=== PATIENT | female | born 1940 | race Caucasian/White ===

== ENCOUNTER 2020-09-12 13:04 | Outpatient (CLI) | payer MEDICARE, OTHER, SELFPAY ==
--- NOTE | 2020-09-12 13:17 | MM_ITS ---
WS: [id number] BILATERAL DIGITAL SCREENING MAMMOGRAPHY WITH CAD CLINICAL INFORMATION: SCREENING HISTORY: Screening mammogram. No current complaints. COMPARISON: TECHNIQUE: Bilateral CC and MLO views. FINDINGS: The breasts are composed of heterogeneous fibroglandular density tissue, which can limit the detectio n of small underlying mass lesions. 8 mm asymmetric density along the posterior nipple line with sugg estion of adjacent ductal dilatation. Recommend spot compression views and ultrasound for further lyssa luation. Left breast appears unchanged. MM/[place] [id number] IMPRESSION: BI-RADS: 0-Incomplete: Need additional imaging evaluation FOLLOW UP: Need Additional Imaging RECOMMEND DIAGNOSTIC SPOT COMPRESSION VIEWS AND ULTRASOUND RIGHT BREAST
== END 2020-09-12 13:05 | disposition home or self-care (01) ==
LOC: RADSHAW 13:10
PROVIDERS: PCP Family Medicine; Visit Provider Family Medicine
DX: Z12.31 Encounter for screening mammogram for malignant neoplasm of breast (principal); N64.89 Other specified disorders of breast
CPT/HCPCS: 77067

== ENCOUNTER 2020-10-03 08:11 | Outpatient (CLI) | payer MEDICARE, OTHER, SELFPAY ==
--- NOTE | 2020-10-03 08:29 | US_ITS ---
WS: [id number] RIGHT DIGITAL MAMMOGRAPHY WITH CAD CLINICAL INFORMATION: BREAST ASYMMETRY COMPARISON: September 12, 2020 TECHNIQUE: 3 views of the right breast were obtained. FINDINGS: Scattered fibroglandular densities of the right breast. Vascular calcification. Stable 8 mm asymmetri c density along the posterior nipple line. This improves with compression but persists. Ultrasound is pending. ULTRASOUND BREAST RIGHT TECHNIQUE: Ultrasound right breast focused area of concern. CLINICAL INFORMATION: BREAST ASYMMETRY COMPARISON: None. FINDINGS: Ultrasound right breast at the 3:00 and 9:00 position. Normal underlying breast tissue. No evidence o f cystic or solid lesions. No suspicious lesions. No lesions to target for biopsy. US/US breast RT limited* [id number] BI-RADS: 2-Benign FOLLOW UP: 1 Year Follow-up Recommend return to annual screening mammography.
== END 2020-10-03 08:12 | disposition home or self-care (01) ==
LOC: RADSHAW 08:15
PROVIDERS: PCP Family Medicine; Visit Provider Family Medicine
DX: N64.89 Other specified disorders of breast (principal)
CPT/HCPCS: 76642; 77065

== ENCOUNTER → 2021-06-26 12:29 | Outpatient (BNVA) | payer MEDICARE, OTHER, SELFPAY | PROVIDERS: PCP Family Medicine; Visit Provider Nurse Practitioner | DX: S62.102A Fracture of unspecified carpal bone, left wrist, initial encounter for closed fracture (principal); W19.XXXA Unspecified fall, initial encounter; Z68.33 Body mass index [BMI] 33.0-33.9, adult; Z71.89 Other specified counseling | CPT/HCPCS: 73110; 73130 ==

== ENCOUNTER 2021-06-30 10:05 | Outpatient (CLI) | payer MEDICARE, OTHER, SELFPAY ==
--- NOTE | 2021-06-30 10:15 | USCV_ITS ---
Ina Cunningham Age: 80 Gender: F : 1940 Exam Date: 06/30/2021 10:36 Ordering Phys: Rebecca Rebollar MD Technologist: Vivian Langley [place] [facility] [place]: heart murmur BP: 130 / 64 HR: 59 Rhythm: Sinus Technical Quality: Adequate MEASUREMENTS (Male / Female) Normal Values 2D ECHO LV Diastolic Diameter PLAX 4.1 cm 4.2 - 5.9 / 3.9 - 5.3 cm LV Systolic Diameter PLAX 2.4 cm IVS Diastolic Thickness 1.1 cm 0.6 - 1.0 / 0.6 - 0.9 cm IVS Systolic Thickness 1.4 cm LVPW Diastolic Thickness 0.8 cm 0.6 - 1.0 / 0.6 - 0.9 cm LVPW Systolic Thickness 1.8 cm LVOT Diameter 2.1 cm LV Ejection Fraction 2D Teich 72.2 % LV Ejection Fraction MOD 2C 65.5 % LV Ejection Fraction 2C AL 67.1 % LA Diameter 3.3 cm LA Width 3.5 cm LA Height 5.3 cm RA Width 3.9 cm RA Height 4.8 cm Aorta at Sinotubular Diameter 2.5 cm DOPPLER AV Peak Velocity 147.0 cm/s LVOT Peak Velocity 120.0 cm/s AV Area Cont Eq vti 2.8 cm squared AV Area Cont Eq pk 2.8 cm squared MV Peak Velocity 159.0 cm/s MV Area PHT 4.3 cm squared Mitral E to A Ratio 1.1 MV E' Velocity 66.5 cm/s Mitral E to MV E' Ratio 11.6 Mitral E to LV E' Lateral Ratio 10.4 Mitral E to LV E' Septal Ratio 13.3 TR Peak Velocity 294.5 cm/s TR Peak Gradient 34.7 mmHg Right Atrial Pressure 3.0 mmHg Pulmonary Artery Systolic Pressu 37.7 mmHg PV Peak Velocity 101.0 cm/s RV Acceleration Time 0.1 s RV Ejection Time 0.3 s RV AcT/ET 0.4 FINDINGS Left Ventricle Normal left ventricular cavity size. Normal left ventricular systolic function. No regional wall motion abnormalities. Left ventricular ejection fraction is estimated at 60 %. 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 Right Ventricle Moderately increased right ventricular size. Moderate pulmonary hypertension, RVSP 37.7 mmHg. Right Atrium Moderately increased right atrial size. Left Atrium Mildly increased left atrial size. Mitral Valve Moderately thickened mitral valve. No mitral valve stenosis. Moderate mitral valve regurgitation. Aortic Valve Moderate aortic valve calcification. No aortic valve stenosis. No aortic valve regurgitation. Tricuspid Valve Severe tricuspid valve regurgitation. Pulmonic Valve Structurally normal pulmonic valve without significant stenosis. There is no pulmonic regurgitation. Pericardium Normal pericardium without effusion. Aorta Normal ascending aorta dimension. CONCLUSIONS 1-Normal left ventricular cavity size. Normal left ventricular systolic function. No regional wall motion abnormalities. Left ventricular ejection fraction is estimated at 60 %. 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 2-Moderately increased right ventricular size. Moderate pulmonary hypertension, RVSP 37.7 mmHg. 3-Moderately increased right atrial size. 4-Mildly increased left atrial size. 5-Moderately thickened mitral valve. No mitral valve stenosis. Moderate mitral valve regurgitation. 6-Moderate aortic valve calcification. No aortic valve stenosis. No aortic valve regurgitation. 7-Severe tricuspid valve regurgitation. 8-There is no pericardial effusion. 9-Right atrial pressure is around 5 mm of mercury. 10-When compared to the prior echocardiogram dated July 08, 2014 there is a worsening of mitral valve regurgitation from mild to moderate and tricuspid valve regurgitation from moderate to severe . Pulmonary pressure remains in the category of moderate. Lincoln Ortiz MD (Electronically Signed) Final Date: 04 July 2021 09:55 S
== END 2021-06-30 10:06 | disposition home or self-care (01) ==
LOC: RAD 10:14
PROVIDERS: PCP Family Medicine; Visit Provider Family Medicine
DX: R01.1 Cardiac murmur, unspecified (principal); I08.3 Combined rheumatic disorders of mitral, aortic and tricuspid valves
CPT/HCPCS: 93306

== ENCOUNTER 2021-07-04 16:04 | Outpatient (CLI) | payer MEDICARE, OTHER, SELFPAY | END 2021-07-04 16:05 | disposition home or self-care (01) | LOC: SPT 16:05 | PROVIDERS: PCP Family Medicine; Visit Provider Orthopaedic Surgery | DX: Z46.89 Encounter for fitting and adjustment of other specified devices (principal); S52.592D Other fractures of lower end of left radius, subsequent encounter for closed fracture with routine healing; X58.XXXD Exposure to other specified factors, subsequent encounter | CPT/HCPCS: L3908 ==

== ENCOUNTER → 2021-08-01 13:02 | Outpatient (BNVA) | payer MEDICARE, OTHER, SELFPAY | PROVIDERS: PCP Family Medicine; Visit Provider Orthopaedic Surgery | DX: S52.502D Unspecified fracture of the lower end of left radius, subsequent encounter for closed fracture with routine healing (principal); W19.XXXD Unspecified fall, subsequent encounter | CPT/HCPCS: 73110 ==

== ENCOUNTER 2022-02-22 13:53 | Outpatient (CLI) | payer MEDICARE, OTHER, SELFPAY ==
--- NOTE | 2022-02-22 14:03 | MM_ITS ---
WS: [id number] BILATERAL 3D TOMOSYNTHESIS DIGITAL DIAGNOSTIC MAMMOGRAPHY WITH CAD CLINICAL INFORMATION: RT BREAST PAIN HISTORY: History of RIGHT breast pain which has resolved. COMPARISON: October 03, 2020 TECHNIQUE: Bilateral CC, MLO, and ML views. FINDINGS: Scattered fibroglandular densities bilaterally. Vascular calcification. A few incidental punctate lou cifications. No suspicious focal mass, asymmetry, calcifications, or architectural distortion. No evidence of grisel gnancy. MM/[place] [id number] IMPRESSION: BI-RADS: 2-Benign FOLLOW UP: 1 Year Follow-up Recommend return to annual screening mammography.
== END 2022-02-22 13:54 | disposition home or self-care (01) ==
LOC: RAD 13:56
PROVIDERS: PCP Family Medicine; Visit Provider Family Medicine
DX: N64.4 Mastodynia (principal)
CPT/HCPCS: 77062

== ENCOUNTER 2022-03-07 13:25 | Outpatient (RCR) | payer MEDICARE, OTHER, SELFPAY | END 2022-03-10 23:59 | disposition home or self-care (01) | LOC: SPT 13:25 | PROVIDERS: PCP Family Medicine; Referring Provider Family Medicine; Visit Provider Family Medicine | DX: R42 Dizziness and giddiness (principal) | CPT/HCPCS: 95992; 97162 ==

== ENCOUNTER 2022-03-11 | Outpatient (RCR) | payer MEDICARE, OTHER, SELFPAY | END 2022-04-10 23:59 | disposition home or self-care (01) | LOC: SPT | PROVIDERS: PCP Family Medicine; Referring Provider Family Medicine; Visit Provider Family Medicine | DX: R42 Dizziness and giddiness (principal) | CPT/HCPCS: 95992 ==

== ENCOUNTER 2023-03-04 14:06 | Outpatient (CLI) | payer MEDICARE, SELFPAY ==
--- NOTE | 2023-03-04 14:15 | MM_ITS ---
WS: [id number] BILATERAL 3D TOMOSYNTHESIS DIGITAL SCREENING MAMMOGRAPHY WITH CAD CLINICAL INFORMATION: SCREENING HISTORY: Screening mammogram. No current complaints. COMPARISON: February 22, 2022 TECHNIQUE: Bilateral CC and MLO views. FINDINGS: The breasts are composed of heterogeneous fibroglandular density tissue, which can limit the detectio n of small underlying mass lesions. No suspicious mass, asymmetry, calcifications, or architectural d istortion. No evidence of malignancy. Vascular calcification. MM/[place] [id number] IMPRESSION: BI-RADS: 2-Benign FOLLOW UP: 1 Year Follow-up Recommend return to annual screening mammography.
== END 2023-03-04 14:07 | disposition home or self-care (01) ==
LOC: RAD 14:10
PROVIDERS: PCP Family Medicine; Visit Provider Family Medicine
DX: Z12.11 Encounter for screening for malignant neoplasm of colon (principal)
CPT/HCPCS: 77063; 77067

== ENCOUNTER → 2023-07-02 14:39 | Outpatient (BNVA) | payer MEDICARE, OTHER, SELFPAY | PROVIDERS: PCP Family Medicine; Visit Provider Dermatology | DX: L57.0 Actinic keratosis (principal); L21.8 Other seborrheic dermatitis; L64.8 Other androgenic alopecia; L82.1 Other seborrheic keratosis; D23.72 Other benign neoplasm of skin of left lower limb, including hip; L57.8 Other skin changes due to chronic exposure to nonionizing radiation; L81.4 Other melanin hyperpigmentation | CPT/HCPCS: 17000; 17003; 99214 ==

== ENCOUNTER → 2023-10-28 12:24 | Outpatient (BNVA) | payer MEDICARE, OTHER, SELFPAY | PROVIDERS: PCP Family Medicine; Visit Provider Internal Medicine Cardiovascular Disease | DX: I48.19 Other persistent atrial fibrillation (principal); I11.0 Hypertensive heart disease with heart failure; I50.32 Chronic diastolic (congestive) heart failure; I25.10 Atherosclerotic heart disease of native coronary artery without angina pectoris; I34.0 Nonrheumatic mitral (valve) insufficiency; I36.1 Nonrheumatic tricuspid (valve) insufficiency; Z79.82 Long term (current) use of aspirin | CPT/HCPCS: 99214 ==

== ENCOUNTER 2024-03-06 13:45 | Outpatient (CLI) | payer MEDICARE, OTHER, SELFPAY ==
--- NOTE | 2024-03-06 13:53 | MM_ITS ---
WS: [id number] BILATERAL 3D TOMOSYNTHESIS DIGITAL SCREENING MAMMOGRAPHY WITH CAD CLINICAL INFORMATION: SCREENING HISTORY: Screening mammogram. No current complaints. COMPARISON: None. TECHNIQUE: Bilateral CC and MLO views. FINDINGS: The breasts are composed of heterogeneous fibroglandular density tissue, which can limit the detectio n of small underlying mass lesions. No suspicious mass, asymmetry, calcifications, or architectural d istortion. No evidence of malignancy. Vascular calcification. Incidental punctate calcifications. IMPRESSION: MM/[place] [id number] BI-RADS: 2-Benign FOLLOW UP: 1 Year Follow-up Recommend return to annual screening mammography.
== END 2024-03-06 13:46 | disposition home or self-care (01) ==
LOC: RAD 13:45
PROVIDERS: PCP Family Medicine; Visit Provider Family Medicine
DX: Z12.31 Encounter for screening mammogram for malignant neoplasm of breast (principal); R92.333 Mammographic heterogeneous density, bilateral breasts
CPT/HCPCS: 77063; 77067

== ENCOUNTER → 2024-04-28 11:19 | Outpatient (BNVA) | payer MEDICARE, OTHER, SELFPAY | PROVIDERS: PCP Family Medicine; Visit Provider Internal Medicine Cardiovascular Disease | DX: I48.19 Other persistent atrial fibrillation (principal); I25.10 Atherosclerotic heart disease of native coronary artery without angina pectoris; I11.0 Hypertensive heart disease with heart failure; I50.32 Chronic diastolic (congestive) heart failure; I08.1 Rheumatic disorders of both mitral and tricuspid valves; Z95.1 Presence of aortocoronary bypass graft | CPT/HCPCS: 99213 ==

== ENCOUNTER → 2024-07-02 14:15 | Outpatient (BNVA) | payer MEDICARE, OTHER, SELFPAY | PROVIDERS: PCP Family Medicine; Visit Provider Nurse Practitioner Family | DX: L57.0 Actinic keratosis (principal); L21.8 Other seborrheic dermatitis; L64.8 Other androgenic alopecia; L82.1 Other seborrheic keratosis; L57.8 Other skin changes due to chronic exposure to nonionizing radiation | CPT/HCPCS: 17000; 99214 ==

== ENCOUNTER → 2024-10-26 15:42 | Outpatient (BNVA) | payer MEDICARE, OTHER, SELFPAY | PROVIDERS: PCP Family Medicine; Visit Provider Internal Medicine Cardiovascular Disease | DX: I48.19 Other persistent atrial fibrillation (principal); I25.10 Atherosclerotic heart disease of native coronary artery without angina pectoris; I11.0 Hypertensive heart disease with heart failure; I50.32 Chronic diastolic (congestive) heart failure | CPT/HCPCS: 99214 ==

== ENCOUNTER 2024-11-08 21:45 | Inpatient (IN) | payer MEDICARE, OTHER, SELFPAY ==
--- NOTE | 2024-11-08 21:48 | ECG_ITS ---
[facility] Test Date: 2024-11-08 Pat Name: Ina Cunningham Department: Room: Gender: Female Pay Per Click Strategist: : 1940 Requested By: Arsenio Beebe Order Number: [id number] Carisa MD: Candelario Dunn M.D. Measurements Intervals [place] Rate: 111 P: 12 [place]: 163 QRS: 25 QRSD: 73 T: 77 QT: 315 QTc: 429 Interpretive Statements SINUS TACHYCARDIA WITH FREQUENT SUPRAVENTRICULAR PREMATURE COMPLEXES MODERATE ST DEPRESSION [0.05+ mV ST DEPRESSION] Compared to ECG 12/31/2017 15:26:52 ST (T wave) deviation now present Sinus rhythm no longer present Myocardial infarct finding no longer present Electronically Signed On 11-09-2024 16:50:11 PLANT INSPECTOR by Candelario Dunn M.D. [id number]
[2024-11-08 21:49] VITALS: PULSE 145; RESP 20; TEMP 37.1; O2SAT 97; BMI 24.7
--- NOTE | 2024-11-08 21:53 | XRR_ITS ---
PROCEDURE INFORMATION: Exam: XR Chest Exam date and time: 11/08/2024 10:07 PM Age: 84 years old Clinical indication: Pain; Chest pressure; Prior surgery; Surgery date: 6+ months; Surgery type: Cabg; Additional info: Chest pain; Afib TECHNIQUE: Imaging protocol: Radiologic exam of the chest. Views: 1 view. COMPARISON: CR XR chest 1V [id number] 12/31/2017 3:23 PM FINDINGS: Lungs: Unremarkable. No consolidation. Pleural spaces: Unremarkable. No pleural effusion. No pneumothorax. Heart/Mediastinum: Unremarkable. No cardiomegaly. Bones/joints: Median sternotomy wires. XR/XR chest 1V portable [id number] IMPRESSION: As above.
[2024-11-08 22:06] VITALS: BP 165/91; PULSE 163; RESP 19; O2SAT 93
--- NOTE | 2024-11-08 22:06 | ECG_ITS ---
[facility] Test Date: 2024-11-08 Pat Name: Ina Cunningham Department: Room: Gender: Female Operations Liaison: : 1940 Requested By: Wilfred Claudio Order Number: [id number] Carisa MD: Candelario Dunn M.D. Measurements Intervals [place] Rate: 145 P: 0 [place]: 0 QRS: 30 QRSD: 74 T: 110 QT: 270 QTc: 420 Interpretive Statements ATRIAL FLUTTER WITH RAPID VENTRICULAR RESPONSE ST DEPRESSION, CONSIDER SUBENDOCARDIAL INJURY [0.1+ mV ST DEPRESSION] ABNORMAL QRS-T ANGLE [QRS-T AXIS DIFFERENCE > 60] Compared to ECG 11/08/2024 21:52:52 Sinus tachycardia no longer present ST (T wave) deviation still present Electronically Signed On 11-09-2024 16:50:03 LAP WINDING MACHINE OPERATOR by Candelario Dunn M.D. [id number]
--- NOTE | 2024-11-08 22:07 | ED_ITS ---
HPI - Arrhythmia/Palpitations 2 General: Chief Complaint: Arrhythmia/Palpitations Stated Complaint: heart rate is fast Time Seen by Provider: 11/08/24 21:57 Source: patient Mode of arrival: ambulatory Limitations: no limitations History of Present Illness: 84-year-old female has a history of A-fi b patient states she has been having palpitations tonight states it is not went away she is tachycardic here into the 150s she denies any pain states she has had just some weird feelings of feeling like her heart is racing. Denies any shortness of breath she denies any worsening improving factors. Associated symptoms: Deny nausea or vomiting Related Data Home Medications Medication Instructions Recorded Confirmed aspirin 325 mg tablet 325 mg PO DAILY 08/01/20 10/26/24 biotin 10,000 mcg capsule mcg PO 08/01/20 10/26/24 cetirizine 10 mg tablet (Zyrtec) 10 mg PO DAILY 08/01/20 10/26/24 diphenoxylate-atropine 2.5 1 tab PO DAILY PRN 08/01/20 10/26/24 mg-0.025 mg tablet (Lomotil) pantoprazole 40 mg tablet,delayed 40 mg PO DAILY 08/01/20 10/26/24 release trazodone 100 mg tablet 50 mg PO DAILY 08/01/20 10/26/24 vitamin E (dl, acetate) 45 mg (100 100 unit PO DAILY 08/01/20 10/26/24 unit) capsule atorvastatin 40 mg tablet 40 mg PO DAILY 04/27/21 10/26/24 escitalopram oxalate 10 mg tablet 10 mg PO DAILY 10/28/23 10/26/24 (Lexapro) furosemide 20 mg tablet 20 mg PO DAILY PRN 04/28/24 10/26/24 Previous Rx's Medication Instructions Recorded clobetasol 0.05 % scalp solution 1 applic topical DAILY #50 mL 05/18/21 cock up splint #1 ea 07/04/21 metoprolol succinate 25 mg 25 mg PO DAILY #90 tabs 10/26/24 tablet,extended release 24 hr valsartan 80 1 tab PO BID #180 tabs 10/26/24 mg-hydrochlorothiazide 12.5 mg tablet Allergies Allergy/AdvReac Type Severity Reaction Status Date / Time Iodinated Contrast Media Allergy Unknown Unknown Verified 10/26/24 15:46 Sulfa (Sulfonamide Allergy Unknown Unknown Verified 10/26/24 15:46 Antibiotics) Review of Systems 2 Const: Denies: fever(s), chills, body aches or change in appetite ENMT: Denies: throat pain or dental pain Card: Reports: palpitations; Denies: chest pain Resp: Denies: dyspnea GI: Denies: abdominal pain, nausea, vomiting or diarrhea Musc: Denies: neck pain or back pain Skin/Breast: Denies: rash Neuro: Denies: headache(s) PFSH ED 2 PFSH: Medical History Tricuspid valve regurgitation Mitral valve regurgitation Diastolic CHF, chronic Osteoarthritis Diabetes mellitus Hyperlipidemia Arteriosclerotic coronary artery disease Essential hypertension Atrial fibrillation Surgical History S/P carpal tunnel release (12/2013) S/P CABG (coronary artery bypass graft) Family History Father Hypertension Mother Cancer Social History Smoking and tobacco/nicotine status: never used tobacco/nicotine Alcohol intake: current Alcohol intake frequency: 0-2 Drinks per Day Alcohol type: wine Substance/Drug Use: never Physical Exam 2 Const: COMMON NORMALS: no acute distress and patient oriented x3 HENMT: COMMON NORMALS: normocephalic and atraumatic HEAD & SCALP: n ormocephalic and atraumatic Eye: COMMON NORMALS: Equal, round and reactive pupils present and EOMs intact bilaterally PUPIL: Yes Equal, round and reactive pupils present Neck/C-Spine: COMMON NORMALS: full ROM and supple Chest: COMMONS NORMALS: normal inspection of the chest Resp: COMMON NORMALS: normal respiratory effort, No retractions, No use of accessory muscles and clear to auscultation bilaterally AUSCULTATION: clear to auscultation bilaterally Cardio: COMMON NORMALS: No murmurs present (Cardio) RATE: tachycardic R HYTHM: abnormal rhythm irregularly irregular GI: COMMON NORMALS: Normal to inspection, nondistended, normoactive bowel sounds present, Soft to palpation, non-tender and no masses PALPATION: Yes Soft to palpation Extremity: COMMON NORMALS: normal to inspection and full ROM Neuro: COMMON NORMALS: patient oriented x3, moves all extremities and no focal motor deficits Psych: COMMON NORMALS: mental status grossly normal Skin: COMMON NORMALS: no rashes or lesions noted and no wounds GENERAL SKIN EXAM: no rashes or lesions noted Course 2 Vital Signs: Vital signs: Vital Signs Temperature 98.8 F 11/08/24 21:49 Pulse Rate 163 H 11/08/24 22:06 Respiratory Rate 19 H 11/08/24 22:06 Blood Pressure 165/91 11/08/24 22:06 Pulse Oximetry 93 11/08/24 22:06 Oxygen Delivery Me thod Room Air 11/08/24 22:06 MDM - Arrhythmia/Palpitations Medical Decision Making Patient presents here with A-fib with RVR she is started on a Cardizem drip here if spoke to the hospitalist will admit at this time. Medical Records I reviewed the patient's medical records. Lab Data I reviewed the patient's lab results. 11/08/24 22:02 11/08/24 22:02 Laboratory Results WBC 7.24 10^3/uL (3.29-11.43) 11/08/24 22:02 RBC 5.02 10^6/uL (3.85-5.65) 11/08/24 22:02 Hgb 15.70 g/dL (11.27-16.99) 11/08/24 22:02 Hct 45.8 % (36-47) 11/08/24 22:02 MCV 91.2 fl (85-98) 11/08/24 22:02 MCH 31.3 pg (27-33) 11/08/24 22:02 MCHC 34.3 g/dL (30-55) 11/08/24 22:02 RDW 11.8 % (12.1-15.1) L 11/08/24 22:02 Plt Count 245 10^3/cmm (157-399) 11/08/24 22:02 MPV 9.4 fL (7.4-10.4) 11/08/24 22:02 Neut % (Auto) 54.3 % 11/08/24 22:02 Lymph % (Auto) 29.7 % 11/08/24 22:02 [place] % (Auto) 12.2 % 11/08/24 22:02 Eos % (Auto) 2.5 % 11/08/24 22:02 Baso % (Auto) 1.2 % 11/08/24 22:02 Neut # (Auto) 3.93 10^3/uL (1.8-7.7) 11/08/24 22:02 Lymph # (Auto) 2.2 10^3/uL (0.8-4.8) 11/08/24 22:02 [place] # (Auto) 0.9 10^3/uL (0.2-0.9) 11/08/24 22:02 Eos # (Auto) 0.2 10^3/uL (0.0-0.8) 11/08/24 22:02 Baso # (Auto) 0.1 10^3/uL (0.0-0.1) 11/08/24 22:02 Nucleated RBC % (auto) 0 % 11/08/24 22:02 Nucleated RBCs # 0.0 /100WBC 11/08/24 22:02 Sodium 131 mmol/L (136-145) L 11/08/24 22:02 Potassium 3.6 mmol/L (3.5-5.1) 11/08/24 22:02 Chloride 90 mmol/L (98-107) L 11/08/24 22:02 Carbon Dioxide 29 mmol/L (22-29) 11/08/24 22:02 Anion Gap 15.6 (5-19) 11/08/24 22:02 BUN 23 mg/dL (8-23) 11/08/24 22:02 Creatinine 0.9 mg/dL (0.5-0.9) 11/08/24 22:02 GFR Calculation Not Reportable 11/08/24 22:02 Glucose 174 mg/dL (65-115) H 11/08/24 22:02 Calculated Osmolality 280 mOsm/kg (285-295) L 11/08/24 22:02 Calcium 10.0 mg/dL (8.5-10.5) 11/08/24 22:02 Total Bilirubin 0.3 mg/dL (0.15-1.2) 11/08/24 22:02 AST 27 U/L (0-32) 11/08/24 22:02 ALT 20 U/L (0-33) 12/29/24 22:02 Alkaline Phosphatase 72 U/L (35-105) 11/08/24 22:02 Troponin T Baseline 14 ng/L (0-10) H 11/08/24 22:02 Total Protein 7.2 g/dL (6.6-8.7) 11/08/24 22:02 Albumin 4.7 g/dL (3.5-5.2) 11/08/24 22:02 Globulin 2.5 g/dL (1.3-4.6) 11/08/24 22:02 All radiology interpretation(s) finalized by discharge Discharge Plan Discharge Patient Disposition: Admitted As Inpatient Clinical Impression: Atrial fibrillation Qualifiers: Atrial fibrillation type: persistent (not longstanding) Qualified Code(s): I 48.19 - Other persistent atrial fibrillation Condition: Stable Coding Level of Care Code ED Irrigation Equipment Remover for Yessica Guzman
[2024-11-08 22:15] LABS: Basophils # 0.1 10^3/uL (0.0-0.1); Basophils % 1.2 %; Eosinophils # 0.2 10^3/uL (0.0-0.8); Eosinophils % 2.5 %; Hematocrit 45.8 % (36-47); Lymphocytes # 2.2 10^3/uL (0.8-4.8); Lymphocytes % 29.7 %; Mean Corpuscular HGB Conc 34.3 g/dL (30-55); Mean Corpuscular Hemoglobin 31.3 pg (27-33); Mean Corpuscular Volume 91.2 fl (85-98); Mean Platelet Volume 9.4 fL (7.4-10.4); Monocytes # 0.9 10^3/uL (0.2-0.9); Monocytes % 12.2 %; Neutrophils # 3.93 10^3/uL (1.8-7.7); Neutrophils % 54.3 %; Nucleated Red Blood Cells % 0 %; Platelet Count 245 10^3/cmm (157-399); Red Blood Count 5.02 10^6/uL (3.85-5.65); Red Cell Distribution Width 11.8 % (12.1-15.1); White Blood Count 7.24 10^3/uL (3.29-11.43)
[2024-11-08] MEDS: dilTIAZem 5 mg/mL SDV 5 mL 10 MG IVP (22:19)
[2024-11-08 22:24] LABS: Alanine Aminotransferase 20 U/L (0-33); Albumin Level 4.7 g/dL (3.5-5.2); Alkaline Phosphatase 72 U/L (35-105); Anion Gap 15.6 (5-19); Aspartate Amino Transferase 27 U/L (0-32); Blood Urea Nitrogen 23 mg/dL (8-23); Carbon Dioxide 29 mmol/L (22-29); Chloride 90 mmol/L (98-107); Creatinine Clr Calc Pharmacy 43.2449; Globulin 2.5 g/dL (1.3-4.6); Glucose 174 mg/dL (65-115); Osmolality Calculated 280 mOsm/kg (285-295); Potassium 3.6 mmol/L (3.5-5.1); Sodium 131 mmol/L (136-145); Total Bilirubin 0.3 mg/dL (0.15-1.2); Total Protein 7.2 g/dL (6.6-8.7)
[2024-11-08 22:28] LABS: Troponin(5th) Baseline 14 ng/L (0-10)
--- NOTE | 2024-11-08 22:53 | PM.HP ---
Providers/Chief Complaint Primary Care Provider: Rebecca Rebollar MD Chief Complaint: heart rate is fast History of Present Illness Ina Cunningham is a 84 year old female Paroxysmal Afib, vertigo, who presented to [facility] [place] on 11/08/2024 with complaints of palpitations that began earlier in the day. THe patient's palpitations began earlier in the afternoon after voodoo and was intermittent in nature. Around 8:30pm, the palpitations became intractable palpitations, in that they did not stop and was so fast that they scared her, so she decided to present to the ED. The palpitations radiated up her chest up into her neck and her lower jaw. Associated sxs include headaches, SOB, She denies chest pain, chest tightness, light headedness, pre/syncope, coughing, wheezing, abdominal pain, n/v, diarrhea, melena, hematochezia. She endorses chronic dizziness due to vertigo and states that her dizziness did not change w/ the palpitations. She endorses intermittent constipation. She tells me that her solution spec, Dr. Lorenzana decreased her metoprolol succinate earlier this month. In the ED vital signs were significant for BP of 165/91 mmHg and heart rate as high as 163bpm. Her EKG showed atrial flutter with RVR. Her CXR was negative for any acute findings. She was given 10 mg of IVP diltiazem x 1 and started on a Cardizem drip and admitted for further management. Review of Systems Const: Denies: fever(s) or chills Eyes: Denies: change in vision ENMT: Reports: ear or mastoid pain (due to the palpitations. ) and nasal discharge (chronic); Denies: odynophagia, ear discharge or nasal congestion Card: Reports: palpitations and lightheadedness; Denies: chest pain, syncope or pre-syncope Resp: Reports: dyspnea; Denies: productive cough, non-productive cough or wheezing GI: Reports: constipation; Denies: abdominal pain, nausea, vomiting, diarrhea, hematochezia or melena : Denies: difficulty voiding, dysuria, urinary frequency, urinary urgency or hematuria Musc: Reports: other (no myalgias); Denies: joint pain ( old age ) Skin/Breast: Denies: rash or new lesions Neuro: Reports: headache(s) and dizziness (chronic) Psych: Reports: depression; Denies: suicidal ideation or homicidal ideation Endo: Denies: cold intolerance or heat intolerance Blaise/Lymph: Denies: easy bruising or easy bleeding Medications/Allergies Home Medications Medication Instructions Recorded Confirmed Last Taken Type aspirin 325 mg tablet 325 mg PO DAILY 08/01/20 10/26/24 Unknown History biotin 10,000 mcg capsule mcg PO 08/01/20 10/26/24 Unknown History cetirizine 10 mg tablet (Zyrtec) 10 mg PO DAILY 08/01/20 10/26/24 Unknown History diphenoxylate-atropine 2.5 1 tab PO DAILY PRN 08/01/20 10/26/24 Unknown History mg-0.025 mg tablet (Lomotil) pantoprazole 40 mg tablet,delayed 40 mg PO DAILY 08/01/20 10/26/24 Unknown History release trazodone 100 mg tablet 50 mg PO DAILY 08/01/20 10/26/24 Unknown History vitamin E (dl, acetate) 45 mg (100 100 unit PO DAILY 08/01/20 10/26/24 Unknown History unit) capsule atorvastatin 40 mg tablet 40 mg PO DAILY 04/27/21 10/26/24 Unknown History clobetasol 0.05 % scalp solution 1 applic topical DAILY #50 mL 05/18/21 10/26/24 Unknown Rx cock up splint #1 ea 07/04/21 10/26/24 Unknown Rx escitalopram oxalate 10 mg tablet 10 mg PO DAILY 10/28/23 10/26/24 Unknown History (Lexapro) furosemide 20 mg tablet 20 mg PO DAILY PRN 04/28/24 10/26/24 Unknown History metoprolol succinate 25 mg 25 mg PO DAILY #90 tabs 10/26/24 10/26/24 Unknown Rx tablet,extended release 24 hr valsartan 80 1 tab PO BID #180 tabs 10/26/24 10/26/24 Unknown Rx mg-hydrochlorothiazide 12.5 mg tablet Allergies Allergy/AdvReac Type Severity Reaction Status Date / Time Iodinated Contrast Media Allergy Unknown Unknown Verified 10/26/24 15:46 Sulfa (Sulfonamide Allergy Unknown Unknown Verified 10/26/24 15:46 Antibiotics) PFSH Acute PFSH: Medical History (Updated 11/09/24 @ 05:16 by Gracia Alvarez MD) Tricuspid valve regurgitation Mitral valve regurgitation Diastolic CHF, chronic Osteoarthritis Diabetes mellitus Hyperlipidemia Arteriosclerotic coronary artery disease Essential hypertension Atrial fibrillation Surgical History Hx of appendectomy S/P carpal tunnel release (12/2013) S/P CABG (coronary artery bypass graft) Family History Father Hypertension Mother Cancer Social History Smoking and tobacco/nicotine status: never used tobacco/nicotine Alcohol intake: current Alcohol intake frequency: 0-2 Drinks per Day Alcohol type: wine Substance/Drug Use: never Vitals/I&O/Wt Last Vital Signs Temp 98.8 F 11/08/24 21:49 Pulse 163 H 11/08/24 22:06 Resp 19 H 11/08/24 22:06 BP 165/91 11/08/24 22:06 Pulse Ox 93 11/08/24 22:06 O2 Del Method Room Air 11/08/24 22:06 Weight last 48 hrs Weight 63.503 kg Physical Exam Const: GENERAL APPEARANCE: cooperative and comfortable ORIENTATION/CONSCIOUSNESS: Yes awake, Yes oriented to person, Yes oriented to place and Yes oriented to time HENMT: HEAD & SCALP: normocephalic and atraumatic NOSE: Normal external nose present EXTERNAL EAR: Yes external ears normal MOUTH: Normal oral and palatal mucosa present THROAT: posterior oropharynx normal Eye: OTHER: PERRL, EOMI, normal conjunctiva bilaterally. Neck/C-Spine: GENERAL: Yes normal visual inspection and Yes trachea midline THYROID: Thyroid normal CAROTIDS: No bruit CERVICAL SPINE: Yes cervical ROM normal Lymph: OTHER: No cervical or supraclavicular LAD. Resp: OTHER: CTAB w/ no w/r/r. Cardio: OTHER: RRR, 2/6 systolic murmur in the RUSB radiating to the carotids, 2/6 systolic murmur in the LUSB and LLSB. No rubs, gallops or clicks. GI: OTHER: BS+, NT, ND, no guarding, no rigidity, no rebound tenderness, no hepatosplenomegaly. Extremity: GENERAL: No clubbing, No cyanosis and No edema Neuro: SENSORIUM/ORIENTATION: Yes alert, Yes oriented to person, Yes oriented to place and Yes oriented to time CRANIAL NERVES: Yes CN normal except as noted SPEECH: speech normal SENSORY EXAM: No sensory level loss detected MOTOR EXAM: 5/5 motor strength present throughout and Normal motor muscle tone present throughout Psych: APPEARANCE: Yes grossly normal and Yes well kempt ATTITUDE: Yes calm and Yes engaged ACTIVITY/MOTOR BEHAVIOR: Yes appropriate eye contact SPEECH: Yes normal speech MOOD & AFFECT: Yes euthymic mood THOUGHT PROCESS: Normal thought process present THOUGHT CONTENT: Yes Normal thought content present ATTENTION/CONCENTRATION: Yes attention grossly intact MEMORY/COGNITION: Yes memory grossly intact Skin: GENERAL SKIN EXAM: no rashes or lesions noted Data 11/08/24 22:02 11/08/24 22:02 A&P Assessment and plan (1) Atrial flutter with rapid ventricular response: (2) Essential hypertension: Plan Ina Cunningham is a 84 year old female Paroxysmal Afib, vertigo, who presented to [facility] [place] on 11/08/2024 with complaints of palpitations that began earlier in the day. In the ED vital signs were significant for BP of 165/91 mmHg and heart rate as high as 163bpm. Her EKG showed atrial flutter with RVR. Her CXR was negative for any acute findings. She was given 10 mg of IVP diltiazem x 1 and started on a Cardizem drip and admitted for further management. She converted to NSR with heart rate in the 60s around 1 AM on 11/09/2024, so Cardizem drip was weaned to the lowest dose of 2.5mg/min #Atrial flutter w/ RVR #Paroxysmal afib - Continue low dose Cardizem drip at 2.5mg/min. Increase home dose metoprolol succinate back up to 50 mg twice daily -Patient is currently not on anticoagulation. She takes a daily aspirin. We discussed that she needs anticoagulation, because of the risk of stroke. -At this time, we will order full dose Lovenox. -F/u TSH #HTN -Increased metoprolol succinate. #HLD #3v CABG when she was in her mid 60s #CAD s/p 1 stent #chronic HFpEF -Resumed home meds. #Pre-diabetes: -Patient self monitors her blood glucose w/ diet and exercise. F/u A1c #hx of MDD - On escitalopram #Year round Allergic Rhinitis: ON Cetirizine #GERD: Pantoprazole #Vertigo: No meds noted on home meds list. DVT ppx:Lovenox Attestations Medical Necessity Statement*: Patient may require greater than 2 midnights of hospitalization for A-fib with RVR and further cardiac workup. Other Coding Information Focused coding review requested Diagnoses Atrial flutter with rapid ventricular response I48.92 Essential hypertension I10
[2024-11-08] MEDS: dilTIAZem 100 MG in sodium chloride 0.9% (add-van) 100 ML IV (22:59)
[2024-11-08 23:32] VITALS: BP 136/64; PULSE 71; RESP 17; O2SAT 93
[2024-11-09] VITALS (8 sets, daily range): BP systolic 144–173; BP diastolic 58–79; PULSE 56–77; RESP 17–20; TEMP 36.4–37.2; O2SAT 94–98
--- NOTE | 2024-11-09 00:52 | ECG_ITS ---
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 Measurements Intervals [place] Rate: 63 P: 12 DE: 175 QRS: 11 QRSD: 83 T: 61 QT: 402 QTc: 413 Interpretive Statements SINUS RHYTHM Compared to ECG 11/08/2024 22:27:16 Atrial flutter no longer present ST (T wave) deviation no longer present Electronically Signed On 11-09-2024 16:51:59 MEMBER SERVICES COORDINATOR by Candelario Dunn M.D. [id number]
[2024-11-09 01:18] LABS: Troponin 5 2HR 20.23 ng/L (0-10); Troponin 5 2HR Delta 6.23 ABS# (0-10)
--- NOTE | 2024-11-09 04:06 | ECG_ITS ---
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 Measurements Intervals [place] Rate: 55 P: 23 NC: 171 QRS: 2 QRSD: 87 T: 52 QT: 437 QTc: 420 Interpretive Statements SINUS BRADYCARDIA Compared to ECG 11/09/2024 00:52:17 Sinus rhythm no longer present Electronically Signed On 11-09-2024 16:51:48 EXPEDITER by Candelario Dunn M.D. [id number]
--- NOTE | 2024-11-09 04:44 | USCV_ITS ---
Ina Cunningham Age: 84 Gender: F : 1940 Exam Date: 11/09/2024 11:53 Ordering Phys: Gracia Alvarez MD Technologist: CT Exam Location: [facility] [place] Indication: afib BP: 173 / 79 HR: 57 Rhythm: Sinus Technical Quality: Adequate MEASUREMENTS (Male / Female) Normal Values 2D ECHO LVOT Diameter 2.0 cm LV Ejection Fraction MOD 4C 45.5 % LV Ejection Fraction MOD 2C 51.7 % LV Ejection Fraction 2C AL 51.5 % LA Diameter 3.5 cm RA Systolic Volume 4C AL 40.0 ml RA Systolic Volume 4C MOD 38.4 ml LA Sys Volume AL 53.0 cm cubed LA Sys Volume Index AL 28.0 cm cubed/m squared Aorta at Sinotubular Diameter 2.3 cm IVC Diameter 1.8 cm M-MODE LA Ao Ratio MM 2.0 AV Cusp Separation MM 1.7 cm DOPPLER AV Peak Velocity 188.0 cm/s LVOT Peak Velocity 92.0 cm/s AV Area Cont Eq vti 1.7 cm squared AV Area Cont Eq pk 1.6 cm squared MV Peak Velocity 150.0 cm/s MV Area PHT 3.2 cm squared Mitral E to A Ratio 1.2 TR Peak Velocity 320.0 cm/s TR Peak Gradient 41.0 mmHg TR Mean Velocity 243.0 cm/s TR Mean Gradient 26.4 mmHg TR Velocity Time Integral 122.1 cm TV Peak E Velocity 91.0 cm/s PV Peak Velocity 99.5 cm/s FINDINGS Left Ventricle Normal left ventricular size and systolic function, EF 55% . Grade III/IV diastolic dysfunction (restrictive filling pattern), severely elevated filling pressures. Mild left ventricular hypertrophy. Right Ventricle The right ventricle is normal in size and function. Right Atrium Mildly increased right atrial size. Left Atrium Moderately increased left atrial size. Mitral Valve Thickened mitral valve. Trace mitral valve regurgitation. Aortic Valve No gross abnormalities noted Tricuspid Valve Moderate tricuspid valve regurgitation. Estimated pulmonary artery peak systolic pressure 44 mmHg Pulmonic Valve Trace pulmonary valve regurgitation. Pericardium No pericardial effusion. Aorta Normal aortic annulus size. IVC Inferior vena cava not visualized. CONCLUSIONS Normal left ventricular size and systolic function, EF 55% . Grade III/IV diastolic dysfunction (restrictive filling pattern), severely elevated filling pressures. Mild left ventricular hypertrophy. Mildly increased right atrial size. Moderately increased left atrial size. Thickened mitral valve. Trace mitral valve regurgitation. Moderate tricuspid valve regurgitation. Estimated pulmonary artery peak systolic pressure 44 mmHg. Trace pulmonary valve regurgitation. There is no pericardial effusion there are no intracardiac masses Compared to the study from 06/30/2021, there may not be significant change. Dr Félix Summers MD [facility] (Electronically Signed) Final Date: 09 November 2024 16:53 S
[2024-11-09] MEDS: enoxaparin 80 mg/0.8 mL Syringe SUBCUT (05:04)
[2024-11-09] MEDS: acetaminophen 500 mg Tablet 1000 MG PO (05:06)
[2024-11-09] MEDS: metoprolol succinate ER (24 HR) 50 mg Tablet PO (05:06)
[2024-11-09] MEDS: potassium chloride ER 20 mEq Tablet 40 MEQ PO (05:06)
--- NOTE | 2024-11-09 05:26 | PC.NURSE ---
Dr requested patient drink sugar free Gatorade for oral hydration. 2 bottle received from cafeteria.
[2024-11-09 05:58] LABS: Hematocrit 42.2 % (36-47); Mean Corpuscular HGB Conc 33.4 g/dL (30-55); Mean Corpuscular Hemoglobin 31.1 pg (27-33); Mean Corpuscular Volume 93.2 fl (85-98); Mean Platelet Volume 9.6 fL (7.4-10.4); Platelet Count 236 10^3/cmm (157-399); Red Blood Count 4.53 10^6/uL (3.85-5.65); Red Cell Distribution Width 11.8 % (12.1-15.1)
--- NOTE | 2024-11-09 06:02 | PC.NURSE ---
nurse pulled one time order for potassium. incorrectly pulled 1 tab and not 2. house sup overrode to pull second tab.
[2024-11-09 06:18] LABS: Estmated Average Glucose 157; Hemoglobin A1C 7.1 % (4.0-6.0)
[2024-11-09 06:20] LABS: Troponin 5 6HR 21.27 ng/L (0-10); Troponin 5 6HR Delta 7.27 ng/L (0-12)
[2024-11-09 06:29] LABS: Alanine Aminotransferase 20 U/L (0-33); Albumin Level 3.9 g/dL (3.5-5.2); Alkaline Phosphatase 61 U/L (35-105); Aspartate Amino Transferase 22 U/L (0-32); Blood Urea Nitrogen 22 mg/dL (8-23); Calcium 9.7 mg/dL (8.5-10.5); Carbon Dioxide 29 mmol/L (22-29); Chloride 93 mmol/L (98-107); Creatinine Clr Calc Pharmacy 53.3967; Globulin 2.4 g/dL (1.3-4.6); Glucose 138 mg/dL (65-115); Magnesium 1.7 mg/dL (1.7-2.3); Osmolality Calculated 280 mOsm/kg (285-295); Phosphorus 4.1 mg/dL (2.5-4.5); Sodium 132 mmol/L (136-145); Total Bilirubin 0.3 mg/dL (0.15-1.2); Total Protein 6.3 g/dL (6.6-8.7)
[2024-11-09 06:30] LABS: Free T4 Free Thyroxine 1.26 ng/dL (0.82-1.77); Thyroid Stimulating Hormone 2.26 uIU/mL (0.27-4.20)
[2024-11-09 07:32] LABS: Total Cells Counted 100 (0-100)
[2024-11-09 07:33] LABS: Absolute Eosinophils 0.2 10^3/cmm (0.0-0.7); Absolute Neutrophil 3.4 10^3/cmm (1.4-6.5); Absolute Segmented Neutrophil 3.4 10/cmm (1.6-7.1); Eosinophils 3 %; Lymphocytes 25 %; Lymphocytes Absolute 1.6 10^3/cmm (1.2-3.4); Platelet Estimate Normal (Normal); Segmented Neutrophils 55 %
[2024-11-09] MEDS: atorvastatin 40 mg Tablet PO (08:37)
[2024-11-09] MEDS: aspirin 325 mg Tablet PO (08:37)
[2024-11-09] MEDS: hydroCHLOROthiazide 25 mg Tablet 12.5 MG PO ×2 (08:37→17:14)
[2024-11-09] MEDS: escitalopram 10 mg Tablet PO (08:37)
[2024-11-09] MEDS: pantoprazole DR 40 mg Tablet PO (08:37)
[2024-11-09] MEDS: cetirizine 10 mg Tablet PO (08:37)
[2024-11-09] MEDS: losartan 50 mg Tablet 25 MG PO ×2 (08:38→17:14)
--- NOTE | 2024-11-09 09:47 | PC.SOCIAL ---
IMM Update Pg. 2 of IMM updated. Initialed, dated, and timed copy in chart, and copy provided at bedside.
--- NOTE | 2024-11-09 10:19 | PC.CHAP ---
Pastoral Care Encounter/Spiritual Assessment Type of Contact [] Declined pattern layout worker visit [] Patient/Family/Request visit [] Outpatient visit [] Follow-up visit [] Physician referral [] Code/Alert [x] Routine visit [] Staff referral [] Actively dying [] Patient sleeping [] Family support [] [] Out of room [] Palliative care [] [] Receiving care in room [] Pre-surgical visit [] Trauma [] Long length of stay [] ICU visit [] Other: Relational/Emotional Strength [] Patient feels connected with others/family/visitors/staff [] Distress [] Loneliness/isolation [] Abandonment Spirituality of Patient [x] Person of Pauline [] Attends Restorationist of their Pauline [x] Believes in Prayer [] Reads Bible or Gnosticism materials [] There are Spiritual issues to be addressed Electric Motor Rebuilder Interventions [x] Prayer [x] Active listening [] Non-anxious presence [] Spiritual/emotional support [] Crisis/trauma care [] Spiritual counseling [] Bereavement support [] Provided bereavement packet [x] Provided Bible/devotional materials [] Provided toy/stuffed animal, coloring book to patient or family member [] Provided Communion [] Anointing/Lohman [] Salvation [x] Completed spiritual assessment [] Other: Impact on Illness or Injury [] Angry [] Fearful [] Anxious [] Often cries [] Exhaustion [] Unable to work [] Unable to attend rastafarian [] Unable to walk/stand [] Unable to read [] Unable to drive [] Unable to eat/drink [] Unable to sleep [] Unable to be with family [] Patient intubated [] Other: Summary Time spent with patient 10 min
[2024-11-09] MEDS: acetaminophen 325 mg Tablet 650 MG PO (11:42)
--- NOTE | 2024-11-09 13:23 | P.DS_ITS ---
Discharge Providers Date of Admission: 11/08/24 22:53 Date of Discharge: November 09, 2024 Attending Provider at Admission: Gracia Alvarez MD Attending Provider at Discharge: Gillian Moralez MD Primary Care Provider: Rebecca Rebollar MD Diagnoses at Discharge Discharge Diagnosis (1) Atrial flutter with rapid ventricular response: Status: Acute (2) Essential hypertension: Status: Acute Reason for Visit Reason for Visit: heart rate is fast Hospital Course Hospital Course Patient was admitted overnight for atrial fibrillation with RVR she was given a Cardizem push and placed on Cardizem drip 2.5 however became bradycardic therefore the drip was stopped. Her home metoprolol was titrated back up to 50 daily. It was recently reduced by cardiology to 25. She has remained in normal sinus rhythm. Echo was reviewed with no significant changes compared to prior study. Discussed with cardiology. I will discharge patient home at this time on Toprol 50 daily which is her previous home dose. Patient will be placed on Eliquis 5 twice daily for anticoagulation secondary to atrial fibrillation as her [id number] is high. She was advised to return to the hospital should any further symptoms arise. I will place on 14-day event monitor. Physical Exam Narrative: NAD, in normal sinus rhythm Const: COMMON NORMALS: alert GENERAL APPEARANCE: cooperative, comfortable and well kempt ORIENTATION/CONSCIOUSNESS: Yes awake, Yes oriented to person, Yes oriented to place and Yes oriented to time HENMT: COMMON NORMALS: normocephalic, atraumatic, external ears normal and Normal external nose present HEAD & SCALP: normocephalic and atraumatic NOSE: Normal external nose present EXTERNAL EAR: Yes external ears normal MOUTH: Normal oral and palatal mucosa present THROAT: posterior oropharynx normal Eye: OTHER: PERRL, EOMI, normal conjunctiva bilaterally. Neck/C-Spine: COMMON NORMALS: Thyroid normal GENERAL: Yes normal visual inspection and Yes trachea midline THYROID: Thyroid normal CAROTIDS: No bruit CERVICAL SPINE: Yes cervical ROM normal Resp: OTHER: CTAB w/ no w/r/r. Extremity: GENERAL: No clubbing, No cyanosis and No edema Neuro: SENSORIUM/ORIENTATION: Yes alert, Yes oriented to person, Yes oriented to place and Yes oriented to time CRANIAL NERVES: Yes CN normal except as noted SPEECH: speech normal SENSORY EXAM: No sensory level loss detected MOTOR EXAM: 5/5 motor strength present throughout and Normal motor muscle tone present throughout Psych: COMMON NORMALS: Normal thought process present and speech normal APPEARANCE: Yes grossly normal and Yes well kempt ATTITUDE: Yes calm and Yes engaged ACTIVITY/MOTOR BEHAVIOR: Yes appropriate eye contact SPEECH: Yes n ormal speech MOOD & AFFECT: Yes euthymic mood THOUGHT PROCESS: Normal thought process present THOUGHT CONTENT: Yes Normal thought content present ATTENTION/CONCENTRATION: Yes attention grossly intact MEMORY/COGNITION: Yes memory grossly intact Skin: COMMON NORMALS: no rashes or lesions noted GENERAL SKIN EXAM: no rashes or lesions noted Discharge Data Studies Completed and Pending Completed Studies During Hospitalization Category Date Time Status XR chest 1V portable [id number] Stat Exams 11/08/24 21:53 Completed Pending at discharge Category Date Time Status CV. echo complete* [id number] Routine Ultrasound 11/09/24 04:44 Taken Radiology Impressions Chest X-Ray 11/08/24 21:53 IMPRESSION: As above. Laboratory Results WBC 6.20 10^3/uL (3.29-11.43) 11/09/24 05:04 RBC 4.53 10^6/uL (3.85-5.65) 11/09/24 05:04 Hgb 14.10 g/dL (11.27-16.99) 11/09/24 05:04 Hct 42.2 % (36-47) 11/09/24 05:04 MCV 93.2 fl (85-98) 11/09/24 05:04 MCH 31.1 pg (27-33) 11/09/24 05:04 MCHC 33.4 g/dL (30-55) 11/09/24 05:04 RDW 11.8 % (12.1-15.1) L 11/09/24 05:04 Plt Count 236 10^3/cmm (157-399) 11/09/24 05:04 MPV 9.6 fL (7.4-10.4) 11/09/24 05:04 Neut % (Auto) 54.3 % 11/08/24 22:02 Lymph % (Auto) 29.7 % 11/08/24 22:02 Bracken % (Auto) 12.2 % 11/08/24 22:02 Eos % (Auto) 2.5 % 11/08/24 22:02 Baso % (Auto) 1.2 % 11/08/24 22:02 Neut # (Auto) 3.93 10^3/uL (1.8-7.7) 11/08/24 22:02 Lymph # (Auto) 2.2 10^3/uL (0.8-4.8) 11/08/24 22:02 Bracken # (Auto) 0.9 10^3/uL (0.2-0.9) 11/08/24 22:02 Eos # (Auto) 0.2 10^3/uL (0.0-0.8) 11/08/24 22:02 Baso # (Auto) 0.1 10^3/uL (0.0-0.1) 11/08/24 22:02 Nucleated RBC % (auto) 0 % 11/08/24 22:02 Total Counted 100 (0-100) 11/09/24 05:04 Atypical Lymphs % 1.0 % (0-5) 11/09/24 05:04 Absolute Neutrophils 3.4 10^3/cmm (1.4-6.5) 11/09/24 05:04 Segmented Neutrophils 55 % 11/09/24 05:04 Band Neutrophils 0.0 % 11/09/24 05:04 Absolute Lymphocytes 1.6 10^3/cmm (1.2-3.4) 11/09/24 05:04 Lymphocytes (Manual) 25 % 11/09/24 05:04 Monocytes (Manual) 16.0 % 11/09/24 05:04 Absolute Monocytes 1.0 10^3/cmm (0.1-0.6) H 11/09/24 05:04 Eosinophils (Manual) 3 % 11/09/24 05:04 Absolute Eosinophils 0.2 10^3/cmm (0.0-0.7) 11/09/24 05:04 Basophils (Manual) 0.0 % 11/09/24 05:04 Absolute Basophils 0.0 10^3/cmm (0.0-0.2) 11/09/24 05:04 Nucleated RBCs # 0.0 /100WBC 11/08/24 22:02 Platelet Estimate Normal (Normal) 11/09/24 05:04 Sodium 132 mmol/L (136-145) L 11/09/24 05:04 Potassium 4.0 mmol/L (3.5-5.1) 11/09/24 05:04 Chloride 93 mmol/L (98-107) L 11/09/24 05:04 Carbon Dioxide 29 mmol/L (22-29) 11/09/24 05:04 Anion Gap 14.0 (5-19) 11/09/24 05:04 BUN 22 mg/dL (8-23) 11/09/24 05:04 Creatinine 0.8 mg/dL (0.5-0.9) 11/09/24 05:04 GFR Calculation Not Reportable 11/09/24 05:04 Glucose 138 mg/dL (65-115) H 11/09/24 05:04 Estimat Average Glucose 157 11/09/24 05:04 Hemoglobin A1c 7.1 % (4.0-6.0) H 11/09/24 05:04 Calculated Osmolality 280 mOsm/kg (285-295) L 11/09/24 05:04 Calcium 9.7 mg/dL (8.5-10.5) 11/09/24 05:04 Phosphorus 4.1 mg/dL (2.5-4.5) 11/09/24 05:04 Magnesium 1.7 mg/dL (1.7-2.3) 11/09/24 05:04 Total Bilirubin 0.3 mg/dL (0.15-1.2) 11/09/24 05:04 AST 22 U/L (0-32) 11/09/24 05:04 ALT 20 U/L (0-33) 11/09/24 05:04 Alkaline Phosphatase 61 U/L (35-105) 11/09/24 05:04 Troponin T Baseline 14 ng/L (0-10) H 11/08/24 22:02 Troponin T 120 Minute 20.23 ng/L (0-10) H 11/09/24 00:45 Delta Troponin T 6.23 ABS# (0-10) 11/09/24 00:45 Troponin T Hi Sens 6Hr 21.27 ng/L (0-10) H 11/09/24 05:04 Troponin T Hi Sens 6Hr Delta 7.27 ng/L (0-12) 11/09/24 05:04 Total Protein 6.3 g/dL (6.6-8.7) L 11/09/24 05:04 Albumin 3.9 g/dL (3.5-5.2) 11/09/24 05:04 Globulin 2.4 g/dL (1.3-4.6) 11/09/24 05:04 TSH 2.26 uIU/mL (0.27-4.20) 11/09/24 05:04 Free T4 1.26 ng/dL (0.82-1.77) 11/09/24 05:04 Vitals Last Vital Signs Temp 98.4 F 11/09/24 11:30 Pulse 61 11/09/24 11:30 Resp 17 11/09/24 11:30 BP 173/79 11/09/24 11:30 Pulse Ox 97 11/09/24 11:30 O2 Del Method Room Air 11/09/24 11:30 Discharge Plan Discharge Patient Disposition: Home Condition: Stable Prescriptions: New aspirin 81 mg Tablet,Delayed Release (Dr/Ec) 81 mg PO DAILY Qty: 30 0RF Eliquis 5 mg Tablet 5 mg PO BID@0900,2100 Qty: 60 0RF Continued vitamin E (dl, acetate) 100 unit capsule 100 unit PO DAILY diphenoxylate-atropine [Lomotil] 2.5-0.025 mg tablet 1 tab PO DAILY PRN (Reason: Diarrhea) cetirizine [Zyrtec] 10 mg tablet 10 mg PO DAILY pantoprazole 40 mg tablet,delayed release (DR/EC) 40 mg PO DAILY trazodone 100 mg tablet 50 mg PO BEDTIME biotin 10,000 mcg capsule 10,000 mcg PO DAILY atorvastatin 40 mg tablet 40 mg PO DAILY (DME) cock up splint See Rx Instructions .Route .MEDSUPPLY Qty: 1 0RF Rx Instructions: As directed escitalopram oxalate [Lexapro] 10 mg tablet 10 mg PO DAILY furosemide 20 mg tablet 20 mg PO DAILY PRN (Reason: Edema) valsartan-hydrochlorothiazide 80-12.5 mg tablet 1 tab PO BID Qty: 180 3RF ketoconazole 2 % shampoo See Rx Instructions .ROUTE .COMPLEX Rx Instructions: Lather onto SCALP two to three times a week NEEDED. allow TO sit FIVE minutes before rinsing. Changed metoprolol succinate 25 mg tablet extended release 24 hr 50 mg PO DAILY Qty: 90 3RF Discontinued aspirin 325 mg tablet 325 mg PO QAM Discharge Orders: Discharge Order (Routine); Ordered 11/09/24 Ordered By: Gillian Moralez Other Ambulatory Orders: MCT/Event Monitor 14 Days (Routine) Timeframe: 1 Day Facility: [facility] - Location: Radiology Ordered By: Gillian Moralez Referrals: Rebecca Rebollar MD [Primary Care Provider] - 11/18/24 1:00 pm Cassi Feldman NP [Nurse Practitioner] - 7-10 days (We have notified your physician's clinic of the need for a follow-up appointment to be scheduled. If you have not heard from them within the next 2 business days, please call them directly. ) Licnoln Ortiz MD [Physician] - 2 weeks (We have notified your physician's clinic of the need for a follow-up appointment to be scheduled. If you have not heard from them within the next 2 business days, please call them directly. ) Discharge Diet: Cardiac Discharge Activity: Resume usual activity Patient Instructions: Aspirin (By mouth), Apixaban (By mouth) (Eliquis), Hypertension, Atrial Flutter (DC), Opioid Safety, Stroke Stoplight Discharge Attestations Time Spent in Discharge Care*: less than 30 min Quality Metrics Clinical Quality Measures [ No reported AMI, CVA or VTE this stay] Coding Level of Care Code Acute Code for Chg Fwd Diagnoses Atrial flutter with rapid ventricular response I48.92 Essential hypertension I10
--- NOTE | 2024-11-09 17:48 | PC.NURSE ---
discharge instructions given and explained.pt verb understanding of instructions.discharged via w/c to exit at this time.family to drive pt home
== END 2024-11-09 17:49 | disposition home or self-care (01) | DRG 309 ==
LOC: ER 22:55 → CSU 23:25
PROVIDERS: Admitting Provider Internal Medicine; Emergency Provider Emergency Medicine; PCP Family Medicine; Visit Provider Internal Medicine
DX: I48.0 Paroxysmal atrial fibrillation (principal); I50.32 Chronic diastolic (congestive) heart failure; I11.0 Hypertensive heart disease with heart failure; R00.1 Bradycardia, unspecified; R42 Dizziness and giddiness; K59.00 Constipation, unspecified; I08.1 Rheumatic disorders of both mitral and tricuspid valves; M19.90 Unspecified osteoarthritis, unspecified site; E11.9 Type 2 diabetes mellitus without complications; E78.5 Hyperlipidemia, unspecified; I25.10 Atherosclerotic heart disease of native coronary artery without angina pectoris; K21.9 Gastro-esophageal reflux disease without esophagitis; Z79.82 Long term (current) use of aspirin; Z79.01 Long term (current) use of anticoagulants; Z79.891 Long term (current) use of opiate analgesic; Z95.1 Presence of aortocoronary bypass graft; Z82.49 Family history of ischemic heart disease and other diseases of the circulatory system; Z80.9 Family history of malignant neoplasm, unspecified
CPT/HCPCS: 36415; 71045; 80053; 83036; 83735; 84100; 84439; 84443; 84484; 85007; 85025; 85027; 93005; 93306; 96365; 96366; 96372; 96375; 99285; J1650; J3490

== ENCOUNTER → 2025-02-04 15:30 | Outpatient (BNVA) | payer MEDICARE, OTHER, SELFPAY | PROVIDERS: PCP Family Medicine; Visit Provider Internal Medicine Cardiovascular Disease | DX: I48.19 Other persistent atrial fibrillation (principal); Z79.82 Long term (current) use of aspirin; I11.0 Hypertensive heart disease with heart failure; I50.33 Acute on chronic diastolic (congestive) heart failure; Z95.1 Presence of aortocoronary bypass graft | CPT/HCPCS: 99214 ==

== ENCOUNTER 2025-03-09 14:50 | Outpatient (CLI) | payer MEDICARE, OTHER, SELFPAY ==
--- NOTE | 2025-03-09 14:55 | MM_ITS ---
WS: [id number] BILATERAL 3D TOMOSYNTHESIS DIGITAL SCREENING MAMMOGRAPHY WITH CAD CLINICAL INFORMATION: SCREENING HISTORY: Screening mammogram. No current complaints. COMPARISON: 2023 TECHNIQUE: Bilateral CC and MLO views. FINDINGS: The breasts are composed of heterogeneous fibroglandular density tissue, which can limit the detection of small underlying mass lesions. No suspicious mass, asymmetry, calcifications, or architectural distortion. No evidence of malignancy. Vascular calcifications MM/MM scr tomosynthesis [id number] IMPRESSION: DENSITY: The breasts are heterogeneously dense, which may obscure small masses. BI-RADS: 2 - Benign FOLLOW UP: 1 Year Follow-up Recommend return to annual screening mammography.
[2025-03-09 16:50] LABS: Blood Urea Nitrogen 17 mg/dL (8-23); Calcium 9.5 mg/dL (8.5-10.5); Carbon Dioxide 28 mmol/L (22-29); Chloride 87 mmol/L (98-107); Glucose 188 mg/dL (65-115); Osmolality Calculated 267 mOsm/kg (285-295); Sodium 125 mmol/L (136-145)
[2025-03-09 18:00] LABS: Anion Gap 13.7 (5-19); Potassium 3.7 mmol/L (3.5-5.1)
== END 2025-03-09 14:51 | disposition home or self-care (01) ==
PROVIDERS: Nurse Practitioner Family; PCP Family Medicine; Visit Provider Family Medicine
DX: Z12.31 Encounter for screening mammogram for malignant neoplasm of breast (principal); I48.19 Other persistent atrial fibrillation; I10 Essential (primary) hypertension; R92.333 Mammographic heterogeneous density, bilateral breasts; R92.1 Mammographic calcification found on diagnostic imaging of breast
CPT/HCPCS: 36415; 77063; 77067; 80048

== ENCOUNTER → 2025-06-15 13:43 | Outpatient (BNVA) | payer MEDICARE, OTHER, SELFPAY | PROVIDERS: PCP Family Medicine; Visit Provider Nurse Practitioner Family | DX: L21.8 Other seborrheic dermatitis (principal); L64.8 Other androgenic alopecia; L81.4 Other melanin hyperpigmentation; D23.72 Other benign neoplasm of skin of left lower limb, including hip; D18.01 Hemangioma of skin and subcutaneous tissue; C44.319 Basal cell carcinoma of skin of other parts of face; R20.8 Other disturbances of skin sensation; R58 Hemorrhage, not elsewhere classified; L57.0 Actinic keratosis | CPT/HCPCS: 11102; 17000; 99213 ==

== ENCOUNTER 2025-07-02 13:05 | Outpatient (CLI) | payer MEDICARE, OTHER, SELFPAY ==
[2025-07-02 13:28] LABS: Glucose Urine UA Negative (Normal); Nitrate Urine Negative (Negative); Specific Gravity, Urine 1.013 (1.005-1.030)
[2025-07-02 13:30] LABS: Add Urine Microscopic? YES
[2025-07-02 14:39] LABS: Hematocrit 39.3 % (36-47); Hemoglobin 13.30 g/dL (11.27-16.99); Mean Corpuscular HGB Conc 33.8 g/dL (30-55); Mean Corpuscular Hemoglobin 31.3 pg (27-33); Mean Corpuscular Volume 92.5 fl (85-98); Nucleated Red Blood Cells % 0 %; Platelet Count 247 10^3/cmm (157-399); Red Blood Count 4.25 10^6/uL (3.85-5.65); White Blood Count 6.33 10^3/uL (3.29-11.43)
== END 2025-07-02 13:06 | disposition home or self-care (01) ==
PROVIDERS: PCP Family Medicine; Visit Provider Internal Medicine Cardiovascular Disease
DX: R31.9 Hematuria, unspecified (principal); I48.19 Other persistent atrial fibrillation
CPT/HCPCS: 36415; 81001; 85025

== ENCOUNTER → 2025-08-09 14:16 | Outpatient (BNVA) | payer MEDICARE, OTHER, SELFPAY | PROVIDERS: PCP Family Medicine; Visit Provider Internal Medicine Cardiovascular Disease | DX: I48.91 Unspecified atrial fibrillation (principal); I27.20 Pulmonary hypertension, unspecified; I08.1 Rheumatic disorders of both mitral and tricuspid valves; I11.0 Hypertensive heart disease with heart failure; I50.32 Chronic diastolic (congestive) heart failure; Z79.01 Long term (current) use of anticoagulants; Z79.82 Long term (current) use of aspirin | CPT/HCPCS: 99214 ==

== ENCOUNTER 2025-09-16 13:00 | Outpatient (RCR) | payer MEDICARE, OTHER, SELFPAY | END 2025-10-10 23:59 | disposition home or self-care (01) | LOC: CR 13:00 | PROVIDERS: PCP Family Medicine; Referring Provider Internal Medicine Cardiovascular Disease; Visit Provider Internal Medicine Cardiovascular Disease | DX: I50.20 Unspecified systolic (congestive) heart failure (principal) | CPT/HCPCS: 93798 ==

== ENCOUNTER → 2025-09-23 14:37 | Outpatient (BNVA) | payer MEDICARE, OTHER, SELFPAY | PROVIDERS: PCP Family Medicine; Visit Provider Nurse Practitioner Family | DX: L81.4 Other melanin hyperpigmentation (principal); L57.8 Other skin changes due to chronic exposure to nonionizing radiation; L57.0 Actinic keratosis | CPT/HCPCS: 17000; 99213 ==

== ENCOUNTER → 2025-09-24 10:11 | Outpatient (BNVA) | payer MEDICARE, OTHER, SELFPAY | PROVIDERS: PCP Family Medicine; Visit Provider Internal Medicine Cardiovascular Disease | DX: I48.0 Paroxysmal atrial fibrillation (principal); Z79.01 Long term (current) use of anticoagulants; Z79.82 Long term (current) use of aspirin; I25.10 Atherosclerotic heart disease of native coronary artery without angina pectoris; I11.0 Hypertensive heart disease with heart failure; I50.32 Chronic diastolic (congestive) heart failure; Z95.1 Presence of aortocoronary bypass graft; I48.91 Unspecified atrial fibrillation | CPT/HCPCS: 93005; 99214 ==

== ENCOUNTER 2025-10-11 09:55 | Outpatient (RCR) | payer MEDICARE, OTHER, SELFPAY | END 2025-11-10 23:59 | disposition home or self-care (01) | LOC: CR 09:55 | PROVIDERS: PCP Family Medicine; Referring Provider Internal Medicine Cardiovascular Disease; Visit Provider Internal Medicine Cardiovascular Disease | DX: I50.20 Unspecified systolic (congestive) heart failure (principal) | CPT/HCPCS: 93798 ==